=== PATIENT | female | born 1960 | race Hispanic/Latino ===

== ENCOUNTER 2018-03-23 12:38 | Outpatient (CLI) | payer OTHER | END 2018-03-23 12:39 | disposition home or self-care (01) | LOC: BICMAMMO 12:38 | PROVIDERS: ATTEND Nurse Practitioner Family | DX: Z12.31 Encounter for screening mammogram for malignant neoplasm of breast (principal); Z80.3 Family history of malignant neoplasm of breast | CPT/HCPCS: 77067 ==

== ENCOUNTER 2023-08-24 17:42 | Emergency (ER) | payer OTHER ==
[2023-08-24] MEDS ORDERED: fentaNYL 50 mcg/mL 1 mL Vial ONE (18:13)
[2023-08-24] MEDS ORDERED: Ketorolac Tromethamine 30 MG (1 mL) VIAL ONE (18:33)
[2023-08-24] MEDS ORDERED: KETAMINE 100 MG/ML (5ML VIAL) ONE (22:01)
[2023-08-24] MEDS ORDERED: Ondansetron PF 4 MG/2 ML Vial ONE ×2 (22:01→22:42)
== END 2023-08-25 00:01 | disposition home or self-care (01) ==
LOC: ERS 17:42
DX: S52.202A Unspecified fracture of shaft of left ulna, initial encounter for closed fracture (principal); S52.302A Unspecified fracture of shaft of left radius, initial encounter for closed fracture; S80.212A Abrasion, left knee, initial encounter; E11.9 Type 2 diabetes mellitus without complications; I10 Essential (primary) hypertension; W01.0XXA Fall on same level from slipping, tripping and stumbling without subsequent striking against object, initial encounter
CPT/HCPCS: 25605; 96374; 96375; 99156; J1885; J2405; J3010